=== PATIENT | female | born 1975 | race Two or more races ===

== ENCOUNTER 2016-04-30 18:50 | Emergency (ER) | payer MEDICAID ==
[~2016-04-30] VITALS: Ht 154.9 cm; Wt 117.9 kg
[~2016-04-30 18:50] MED LIST: AMOXICILLIN500 MG ORAL; BIAXIN500 M1 PO; CIPRO500 MG PO; CYCLOBENZAPRINE10 MG ORAL; IBUPROFEN600 MG ORAL; IBUPROFEN800 MG ORAL; KEFLEX500 MG ORAL; MACROBID100 MG ORAL; MOBIC15 MG ORAL; NKM; NORCO 5-325 TA1 EACH ORAL; ONDANSETRON ODT4 MG ORAL; PREDNISONE20 MG ORAL; ZOFRAN ODT4 MG ORAL
[2016-04-30] MEDS ORDERED: Acetaminophen 500mg (ES) tab ORAL ONE (19:30)
[2016-04-30 19:55] VITALS: BP 135/78
[2016-04-30 20:04] LABS: APPEARANCE,URINE CLEAR; KETONES,URINE NEGATIVE (NEGATIVE); LEUKOCYTE ESTERASE ,URINE 1+ (NEGATIVE); NITRITE,URINE POSITIVE (NEGATIVE); PH,URINE 6 (4.5-8.0); PROTEIN,URINE 1+ (NEGATIVE); UROBILINOGEN,URINE NORMAL MG/DL (0.0-1.0)
[2016-04-30 20:05] LABS: EOSINOPHILS % (AUTO) 0.6 % (0.0-3.0); LYMPHOCYTES % (AUTO) 24.7 % (20.0-45.0); MEAN CORPUSCULAR HEMOGLOBIN 32.5 PG (27.0-31.0); MEAN CORPUSCULAR HGB CONC 33.2 G/DL (32.0-36.0); MEAN CORPUSCULAR VOLUME 98 FL (80-99); MEAN PLATELET VOLUME 7.4 FL (6.5-10.1); MONOCYTES % (AUTO) 5.6 % (1.0-10.0); NEUTROPHILS % (AUTO) 68.1 % (45.0-75.0); PLATELET COUNT 297 K/UL (150-450); RED CELL DISTRIBUTION WIDTH 12.5 % (11.6-14.8); WHITE BLOOD COUNT 13.5 K/UL (4.8-10.8)
[2016-04-30 20:13] LABS: ALANINE AMINOTRANSFERASE 43 U/L (3-33); ALBUMIN/GLOBULIN RATIO 1.1 (1.0-2.7); ANION GAP 18 (5-15); ASPARTATE AMINO TRANSFERASE 30 U/L (5-40); CALCIUM 9.4 mg/dL (8.6-10.2); CARBON DIOXIDE 24 mEQ/L (20-30); CHLORIDE 97 mEQ/L (98-107); CREATININE 0.8 mg/dL (0.5-0.9); GLOMERULAR FILTRATION RATE > 60 mL/min (>60); HEMOLYSIS 8; SODIUM 139 mEQ/L (135-145); TOTAL PROTEIN 7.7 g/dL (6.6-8.7); TROPONIN I < 0.30 ng/mL (<=0.30)
[2016-04-30 20:14] LABS: BACTERIA,URINE MANY /HPF; SQUAMOUS EPITHELIAL CELL,UR FEW /LPF (NONE/OCC)
[2016-04-30 20:15] LABS: REFLEX LACTIC ACID YES OR NO YES
[2016-04-30 20:15] LABS: AMORPHOUS SEDIMENT,UR FEW /LPF
[2016-04-30 20:30] VITALS: BP 108/58
[2016-04-30 20:48] LABS: CKMB 3.3 ng/mL (< 3.8)
[2016-04-30] MEDS ORDERED: Morphine Sulfate 4mg/ml Inj IVP ONE (21:15)
[2016-04-30] MEDS ORDERED: IBUPROFEN600 MG ORAL (21:19)
[2016-04-30] MEDS ORDERED: LEVAQUIN750 MG ORAL (21:19)
[2016-04-30 21:25] VITALS: BP 108/58
--- NOTE | 2016-04-30 21:59 | Emergency Room Report ---
History of Present Illness General Chief Complaint: Dyspnea/Respdistress Source: Patient Present Illness HPI 40-year-old female presents to ED for evaluation. States that for the last 3 days she's been having productive cough, chills, bodyaches, noticing blood clots in her nose that she is coughing up. States the last time she had similar presentation she had a sinus infection. Patient notes chills, denies fevers. Generalized bodyaches, 8/10, dull, nonradiating. No aggravating or relieving factors. Denies chest pain. The shortness of breath. Denies sick contacts or recent travel. Denies any other associated symptoms Allergies: Coded Allergies: No Known Allergies (Unverified , 01/16/15) Patient History Past Medical History: asthma, CVA/TIA, seizures Past Surgical History: none Pertinent Family History: none Social History: Denies: alcohol use, drug use, smoking Now: No Immunizations: UTD Reviewed Nursing Documentation: PMH: Agreed, PSxH: Agreed Nursing Documentation-PMH Hx Cardiac Problems: Yes - TIA Hx Hypertension: Yes Hx Pacemaker: No Hx Asthma: Yes Hx COPD: No Hx Cancer: Yes - Ovarian cysts, hysterectomy 2013 Hx Dialysis: No Hx Cerebrovascular Accident: Yes Hx Seizures: Yes Review of Systems All Other Systems: negative except mentioned in HPI Physical Exam Vital Signs Date Time Temp Pulse Resp B/P Pulse Ox O2 Delivery O2 Flow Rate FiO2 04/30/16 18:56 98.8 91 21 135/78 93 Room Air Sp02 EP Interpretation: reviewed, normal General Appearance: no apparent distress, alert, GCS 15, non-toxic, obese Head: normocephalic, atraumatic Eyes: bilateral eye PERRL, bilateral eye normal inspection ENT: hearing grossly normal, normal pharynx, no angioedema, normal voice, TMs + canals normal Neck: full range of motion, supple/symm/no masses Respiratory: chest non-tender, lungs clear, normal breath sounds, speaking full sentences Cardiovascular #1: regular rate, rhythm, no edema Cardiovascular #2: 2+ carotid (R), 2+ carotid (L), 2+ radial (R), 2+ radial (L) , 2+ dorsalis pedis (R), 2+ dorsalis pedis (L) Gastrointestinal: normal bowel sounds, non tender, soft, non-distended, no guarding, no rebound Rectal: deferred Genitourinary: normal inspection, no CVA tenderness Musculoskeletal: back normal, gait/station normal, normal range of motion, non- tender Neurologic: alert, oriented x3, responsive, motor strength/tone normal, sensory intact, speech normal Psychiatric: judgement/insight normal, memory normal, mood/affect normal, no suicidal/homicidal ideation Reflexes: 3+ bicep (R), 3+ bicep (L), 3+ tricep (R), 3+ tricep (L), 3+ knee (R) , 3+ knee (L) Skin: normal color, no rash, warm/dry, well hydrated Lymphatic: no adenopathy Medical Decision Making Diagnostic Impression: Primary Impression: UTI (urinary tract infection) Qualified Codes: N39.0 - Urinary tract infection, site not specified Additional Impressions: Myalgia Sinusitis Qualified Codes: J32.9 - Chronic sinusitis, unspecified ER Course Hospital Course 40-year-old female presents to ED complaining of bodyaches, cough, chills, blood tinged sputum Differential diagnoses include: URI, bronchitis, asthma/COPD, pneumonia Clinical course Patient placed on stretcher. After initial history, physical exam reveals an obese female in no acute distress. Bilateral TM unremarkable. No pharyngeal erythema. No tonsillar exudates. No lymphadenopathy. lungs clear. I ordered labs, IV fluids, tylenol, chest x-ray. Labs reviewed-leukocytosis noted, hemoglobin/hematocrit stable, electrolytes okay, UA grossly positive Chest x-ray shows no lobar infiltrate reassurance given to patient. We will treat the UTI and sinus infection with one antibiotic Diagnosis - UTI, myalgia, sinusitis Stable and discharged home with prescriptions for Motrin, Levaquin. Instructed to followup with PMD. Return to ED if symptoms recur or worsen Labs Test 04/30/16 19:40 04/30/16 19:45 04/30/16 20:25 Urine Color Yellow Urine Appearance Clear Urine pH 6 (4.5-8.0) Urine Specific [place] 1.020 (1.005-1.035) Urine Protein 1+ (NEGATIVE) Urine Glucose (UA) Negative (NEGATIVE) Urine Ketones Negative (NEGATIVE) Urine Occult Blood 3+ (NEGATIVE) Urine Nitrite Positive (NEGATIVE) Urine Bilirubin Negative (NEGATIVE) Urine Urobilinogen Normal MG/DL (0.0-1.0) Urine Leukocyte Esterase 1+ (NEGATIVE) Urine RBC 10-15 /HPF (0 - 2) Urine WBC 5-10 /HPF (0 - 2) Urine Squamous Epithelial Cells Few /LPF (NONE/OCC) Urine Amorphous Sediment Few /LPF (NONE) Urine Bacteria Many /HPF (NONE) White Blood Count 13.5 K/UL (4.8-10.8) Red Blood Count 4.90 M/UL (4.20-5.40) Hemoglobin 15.9 G/DL (12.0-16.0) Hematocrit 48.0 % (37.0-47.0) Mean Corpuscular Volume 98 FL (80-99) Mean Corpuscular Hemoglobin 32.5 PG (27.0-31.0) Mean Corpuscular Hemoglobin Concent 33.2 G/DL (32.0-36.0) Red Cell Distribution Width 12.5 % (11.6-14.8) Platelet Count 297 K/UL (150-450) Mean Platelet Volume 7.4 FL (6.5-10.1) Neutrophils (%) (Auto) 68.1 % (45.0-75.0) Lymphocytes (%) (Auto) 24.7 % (20.0-45.0) Monocytes (%) (Auto) 5.6 % (1.0-10.0) Eosinophils (%) (Auto) 0.6 % (0.0-3.0) Basophils (%) (Auto) 1.0 % (0.0-2.0) Sodium Level 139 mEQ/L (135-145) Potassium Level 4.0 mEQ/L (3.4-4.9) Chloride Level 97 mEQ/L (98-107) Carbon Dioxide Level 24 mEQ/L (20-30) Anion Gap 18 (5-15) Blood Urea Nitrogen 12 mg/dL (7-23) Creatinine 0.8 mg/dL (0.5-0.9) Estimat Glomerular Filtration Rate > 60 mL/min (>60) Glucose Level 127 mg/dL (74-106) Lactic Acid Level 2.20 mmol/L (0.66-2.22) 1.80 mmol/L (0.66-2.22) Calcium Level 9.4 mg/dL (8.6-10.2) Total Bilirubin 0.2 mg/dL (0.0-1.2) Aspartate Amino Transf (AST/SGOT) 30 U/L (5-40) Alanine Aminotransferase (ALT/SGPT) 43 U/L (3-33) Alkaline Phosphatase 78 U/L (35-104) Total Creatine Kinase 161 U/L (26-140) Creatine Kinase MB 3.3 ng/mL (< 3.8) Creatine Kinase MB Relative Index 2.0 Troponin I < 0.30 ng/mL (<=0.30) Pro-B-Type Natriuretic Peptide 5 pg/mL (0-125) Total Protein 7.7 g/dL (6.6-8.7) Albumin 4.1 g/dL (3.5-5.2) Globulin 3.6 g/dL Albumin/Globulin Ratio 1.1 (1.0-2.7) EKG Diagnostic Results Rate: normal Rhythm: NSR ST Segments: no acute changes ASA given to the pt in ED: No Rhythm Strip Diag. Results EP Interpretation: yes Rhythm: NSR, no PVC's, no ectopy Chest X-Ray Diagnostic Results EP Interpretation: Yes Findings: no consolidation, no effusion, no pneumothorax, no acute cardiopulmonary disease Number of Views: 1 Last Vital Signs Date Time Temp Pulse Resp B/P Pulse Ox O2 Delivery O2 Flow Rate FiO2 04/30/16 21:25 98.8 99 28 108/58 96 Room Air Status: improved Disposition: HOME, SELF-CARE Condition: Stable Scripts Ibuprofen* (MOTRIN*) 600 Mg Tablet 600 MG ORAL Q8H Y for For Pain, #30 TAB 0 Refills Prov: ALICE COTTRELL M.D. 04/30/16 Levofloxacin* (LEVAQUIN*) 750 Mg Tablet 750 MG ORAL DAILY for 5 Days, TAB Prov: ALICE COTTRELL M.D. 04/30/16 Patient Instructions: Urinary Tract Infection, [id number] ALICE COTTRELL M.D. Apr 30, 2016 21:58
--- NOTE | 2016-05-01 11:13 | Diagnostic Imaging Report ---
Indication: Dyspnea Comparison: 01/16/16 A single view chest radiograph was obtained. Findings: Evaluation limited by breathing motion. Heart size is normal. Lungs are low in volume but essentially clear. Impression: No acute disease
--- NOTE | 2016-05-03 19:51 | Cardiology Report ---
APPROVED REPORT EKG Measurement Heart [id number] Sinus tachycardia Cannot rule out Anterior infarct, age undetermined Abnormal ECG
== END 2016-04-30 21:26 | disposition home or self-care (01) ==
LOC: EMR 19:55
DX: N39.0 Urinary tract infection, site not specified (principal); M79.1 Myalgia; J32.9 Chronic sinusitis, unspecified; I10 Essential (primary) hypertension; J45.909 Unspecified asthma, uncomplicated; Z86.73 Personal history of transient ischemic attack (TIA), and cerebral infarction without residual deficits; Z90.710 Acquired absence of both cervix and uterus
CPT/HCPCS: 36415; 71010; 80053; 81003; 82550; 82553; 83605; 83880; 84484; 85025; 87040; 87086; 87181; 93005; 96374; 99284; J2270

== ENCOUNTER 2016-06-01 10:32 | Emergency (ER) | payer MEDICAID ==
[~2016-06-01] VITALS: Ht 154.9 cm; Wt 117.9 kg
[~2016-06-01 10:32] MED LIST changes: +LEVAQUIN750 MG ORAL
--- NOTE | 2016-06-01 11:29 | Emergency Room Report ---
History of Present Illness General Chief Complaint: Dyspnea/Respdistress Source: Patient Present Illness HPI Patient is a 40-year-old female who presented after increased difficulty breathing. Patient had reported increased difficulty breathing associated with some leg swelling for the past few month. The patient had previously been seen and evaluated for similar type symptoms. Patient had been diagnosed with sinusitis at that time. Patient had negative chest x-ray. Patient reported having increased dyspnea associated with some upper extremity pain. The patient had any fever. She denied Contraceptive use. Allergies: Coded Allergies: No Known Allergies (Unverified , 01/16/15) Patient History Past Medical History: see triage record Last Menstrual Period: hyst Now: No Reviewed Nursing Documentation: PMH: Agreed, PSxH: Agreed Nursing Documentation-PMH Past Medical History: No History, Except For Hx Cardiac Problems: Yes Hx Hypertension: Yes Hx Pacemaker: No Hx Asthma: Yes Hx COPD: No Hx Cancer: Yes - Ovarian cysts, hysterectomy Hx Dialysis: No Hx Cerebrovascular Accident: Yes - TIA Hx Seizures: Yes Review of Systems All Other Systems: negative except mentioned in HPI Physical Exam Vital Signs Date Time Temp Pulse Resp B/P Pulse Ox O2 Delivery O2 Flow Rate FiO2 06/01/16 10:39 98.8 92 24 124/81 96 Room Air Sp02 EP Interpretation: reviewed, normal General Appearance: normal inspection, well appearing, no apparent distress, alert, GCS 15, non-toxic, obese Head: atraumatic ENT: hearing grossly normal, normal voice, other - prominent tongue, no erythema or exudate Neck: normal inspection, full range of motion, supple, no bony tend Respiratory: normal inspection, lungs clear, normal breath sounds, no respiratory distress, no retraction, no wheezing Cardiovascular #1: regular rate, rhythm, no edema Gastrointestinal: normal inspection, normal bowel sounds, non tender, soft, no guarding, no hernia Genitourinary: no CVA tenderness Musculoskeletal: normal inspection, back normal, normal range of motion Neurologic: normal inspection, alert, oriented x3, responsive, laboratory apparatus glass grinder III-XII nml as tested, speech normal Psychiatric: normal inspection, judgement/insight normal, mood/affect normal Skin: normal inspection, normal color, no rash Medical Decision Making Diagnostic Impression: Primary Impression: Pedal edema Additional Impression: Obesity ER Course Patient presented for shortness of breath.Differential included but was not limited to anemia, pneumonia, pneumothorax, myocardial infarction, pericardial effusion, congestive heart failure, acidosis. Because of complexity of patient' s case laboratory testing and imaging studies were ordered.CT of the chest read by radiology showed normal cardiac size without evident effusion or pulmonary embolism. The laboratory tests were unremarkable. The patient's shortness of breath may be related to her body habitus. The patient was advised to continue weight loss and that she may need further evaluation for sleep apnea.The patient is advised to follow up with primary care doctor in 1-2 days. Patient is advised to return if any worsening condition or if any changes in status that are concerning. Labs Test 06/01/16 11:30 06/01/16 11:40 Urine Color Yellow Urine Appearance Clear Urine pH 7 (4.5-8.0) Urine Specific [place] 1.010 (1.005-1.035) Urine Protein Negative (NEGATIVE) Urine Glucose (UA) Negative (NEGATIVE) Urine Ketones Negative (NEGATIVE) Urine Occult Blood 2+ (NEGATIVE) Urine Nitrite Negative (NEGATIVE) Urine Bilirubin Negative (NEGATIVE) Urine Urobilinogen Normal MG/DL (0.0-1.0) Urine Leukocyte Esterase 1+ (NEGATIVE) Urine RBC 2-4 /HPF (0 - 2) Urine WBC 2-4 /HPF (0 - 2) Urine Squamous Epithelial Cells Few /LPF (NONE/OCC) Urine Bacteria Few /HPF (NONE) Urine HCG, Qualitative Negative White Blood Count 9.1 K/UL (4.8-10.8) Red Blood Count 4.71 M/UL (4.20-5.40) Hemoglobin 15.0 G/DL (12.0-16.0) Hematocrit 45.7 % (37.0-47.0) Mean Corpuscular Volume 97 FL (80-99) Mean Corpuscular Hemoglobin 31.8 PG (27.0-31.0) Mean Corpuscular Hemoglobin Concent 32.8 G/DL (32.0-36.0) Red Cell Distribution Width 12.2 % (11.6-14.8) Platelet Count 287 K/UL (150-450) Mean Platelet Volume 8.4 FL (6.5-10.1) Neutrophils (%) (Auto) 62.5 % (45.0-75.0) Lymphocytes (%) (Auto) 28.5 % (20.0-45.0) Monocytes (%) (Auto) 7.1 % (1.0-10.0) Eosinophils (%) (Auto) 0.8 % (0.0-3.0) Basophils (%) (Auto) 1.2 % (0.0-2.0) Prothrombin Time 10.9 SEC (9.30-11.50) Prothromb Time International Ratio 1.1 (0.9-1.1) Activated Partial Thromboplast Time 27 SEC (23-33) D-Dimer 414 ng/mL (<500) Sodium Level 139 mEQ/L (135-145) Potassium Level 3.9 mEQ/L (3.4-4.9) Chloride Level 100 mEQ/L (98-107) Carbon Dioxide Level 25 mEQ/L (20-30) Anion Gap 14 (5-15) Blood Urea Nitrogen 9 mg/dL (7-23) Creatinine 0.7 mg/dL (0.5-0.9) Estimat Glomerular Filtration Rate > 60 mL/min (>60) Glucose Level 90 mg/dL (74-106) Calcium Level 9.5 mg/dL (8.6-10.2) Total Bilirubin 0.4 mg/dL (0.0-1.2) Aspartate Amino Transf (AST/SGOT) 20 U/L (5-40) Alanine Aminotransferase (ALT/SGPT) 24 U/L (3-33) Alkaline Phosphatase 64 U/L (35-104) Total Protein 7.4 g/dL (6.6-8.7) Albumin 4.0 g/dL (3.5-5.2) Globulin 3.4 g/dL Albumin/Globulin Ratio 1.1 (1.0-2.7) EKG Diagnostic Results Rate: normal Rhythm: NSR ST Segments: no acute changes Last Vital Signs Date Time Temp Pulse Resp B/P Pulse Ox O2 Delivery O2 Flow Rate FiO2 06/01/16 11:10 92 24 Room Air 06/01/16 10:39 98.8 124/81 96 Status: improved Romario Quezada Jun 01, 2016 11:29
[2016-06-01 11:46] LABS: APPEARANCE,URINE CLEAR; KETONES,URINE NEGATIVE (NEGATIVE); LEUKOCYTE ESTERASE ,URINE 1+ (NEGATIVE); NITRITE,URINE NEGATIVE (NEGATIVE); PH,URINE 7 (4.5-8.0); PROTEIN,URINE NEGATIVE (NEGATIVE); UROBILINOGEN,URINE NORMAL MG/DL (0.0-1.0)
[2016-06-01 11:57] LABS: BACTERIA,URINE FEW /HPF; SQUAMOUS EPITHELIAL CELL,UR FEW /LPF (NONE/OCC)
[2016-06-01 12:20] LABS: BASOPHILS % (AUTO) 1.2 % (0.0-2.0); EOSINOPHILS % (AUTO) 0.8 % (0.0-3.0); LYMPHOCYTES % (AUTO) 28.5 % (20.0-45.0); MEAN CORPUSCULAR HEMOGLOBIN 31.8 PG (27.0-31.0); MEAN CORPUSCULAR HGB CONC 32.8 G/DL (32.0-36.0); MEAN CORPUSCULAR VOLUME 97 FL (80-99); MEAN PLATELET VOLUME 8.4 FL (6.5-10.1); MONOCYTES % (AUTO) 7.1 % (1.0-10.0); NEUTROPHILS % (AUTO) 62.5 % (45.0-75.0); PLATELET COUNT 287 K/UL (150-450); RED BLOOD COUNT 4.71 M/UL (4.20-5.40); RED CELL DISTRIBUTION WIDTH 12.2 % (11.6-14.8); WHITE BLOOD COUNT 9.1 K/UL (4.8-10.8)
[2016-06-01 12:21] VITALS: BP 116/79
[2016-06-01 12:31] LABS: INR 1.1 (0.9-1.1); PROTHROMBIN TIME 10.9 SEC (9.30-11.50)
[2016-06-01 12:38] LABS: ALANINE AMINOTRANSFERASE 24 U/L (3-33); ALBUMIN/GLOBULIN RATIO 1.1 (1.0-2.7); ANION GAP 14 (5-15); ASPARTATE AMINO TRANSFERASE 20 U/L (5-40); CALCIUM 9.5 mg/dL (8.6-10.2); CARBON DIOXIDE 25 mEQ/L (20-30); CHLORIDE 100 mEQ/L (98-107); CREATININE 0.7 mg/dL (0.5-0.9); GLOMERULAR FILTRATION RATE > 60 mL/min (>60); HEMOLYSIS 8; POTASSIUM 3.9 mEQ/L (3.4-4.9); SODIUM 139 mEQ/L (135-145); TOTAL PROTEIN 7.4 g/dL (6.6-8.7)
[2016-06-01 14:30] VITALS: BP 122/82
--- NOTE | 2016-06-01 15:13 | Diagnostic Imaging Report ---
ndication: Chest pain, left-sided Technique: IV administration nonionic contrast. Spiral acquisitions obtained from the lung bases to the lung apices. Multiplanar and 3-D reconstructions were generated. Total dose length product 1228+1003 3 mGycm. CTDIvol(s) 12, 37, 49, 12, 25, 46 mGy. Note that the scanner failed during the initial acquisition and contrast injection, necessitating a repeat contrast injection and scanning Comparison: None Findings: , Pulmonary arterial contrast opacification is adequate although not optimal. No definite intraluminal filling defects or other findings to suggest acute pulmonary embolus are evident. No evidence of thoracic aortic aneurysm or dissection. Normal caliber pulmonary arteries. Normal heart size. No pericardial effusion. No mediastinal or hilar mass or adenopathy demonstrated. No axillary or chest wall mass or adenopathy. Esophagus is unremarkable. The included thyroid is unremarkable. The lungs demonstrate minimal posterior dependent groundglass opacities, presumably on the basis of atelectatic change, are otherwise clear. Pleural spaces are clear. The included upper abdominal anatomy is unremarkable. Impression: No evidence of acute pulmonary embolus or other acute or significant thoracic pathology. The CT scanner at [facility] is accredited by the [employer] and the scans are performed using protocols designed to limit radiation exposure to as low as reasonably achievable to attain images of sufficient resolution adequate for diagnostic evaluation.
[2016-06-01 15:31] VITALS: BP 115/54
--- NOTE | 2016-06-02 14:35 | Cardiology Report ---
APPROVED REPORT EKG Measurement Heart [id number] Normal sinus rhythm Low voltage QRS Cannot rule out Anterior infarct, age undetermined Abnormal ECG
== END 2016-06-01 15:32 | disposition home or self-care (01) ==
LOC: EMR 11:45
DX: R60.9 Edema, unspecified (principal); E66.9 Obesity, unspecified; I10 Essential (primary) hypertension; Z90.710 Acquired absence of both cervix and uterus; Z86.73 Personal history of transient ischemic attack (TIA), and cerebral infarction without residual deficits
CPT/HCPCS: 36415; 71275; 80053; 81001; 81025; 85025; 85379; 85610; 85730; 93005; 96374; 99284; J1940

== ENCOUNTER 2016-10-02 07:56 | Inpatient (IN) | payer MEDICAID ==
[~2016-10-02] VITALS: Ht 154.9 cm; Wt 107.0 kg
[2016-10-02] MEDS ORDERED: Ipratropium 0.02% Inh Soln 2.5ml UD ONE (08:13)
[2016-10-02] MEDS ORDERED: Albuterol ud Inhalation ONE (08:13)
[2016-10-02 08:37] VITALS: BP 128/85
[2016-10-02] MEDS ORDERED: Ipratropium 0.02% Inh Soln 2.5ml UD HHN ONE (08:45)
[2016-10-02] MEDS ORDERED: Albuterol ud Inhalation HHN ONE ×2 (08:45→11:30)
[2016-10-02] MEDS ORDERED: PredniSONE 20mg tab ORAL ONE (09:30)
[2016-10-02 09:59] VITALS: BP 129/79
--- NOTE | 2016-10-02 10:01 | Diagnostic Imaging Report ---
Indications: Shortness of breath Technique: Portable AP chest Findings: Comparison: 04/30/2016 Patient body habitus results in decreased image quality, limiting evaluation. Cardiac silhouette remains normal in size. Pulmonary vasculature remains within normal limits. Lungs and pleura remain clear.. IMPRESSION: No evidence of acute cardiopulmonary disease, limited as described, unchanged
--- NOTE | 2016-10-02 10:58 | Emergency Room Report ---
History of Present Illness General Chief Complaint: Dyspnea/Respdistress Source: Patient, Medical Record Present Illness HPI This patient has a history of asthma. The patient states that over the past couple days she has had severe episodic cough. She states she's also felt short of breath. She has been using her inhalers without relief. She states that she has had some sputum production and subjective fevers and chills. She states that she was unable to sleep last night secondary to the symptoms. She denies chest pain. She denies abdominal pain. She denies nausea or vomiting. She has no other complaints. Allergies: Coded Allergies: No Known Allergies (Unverified , 01/16/15) Patient History Past Medical History: see triage record, HTN, asthma, CVA/TIA, seizures, other - Lupus Social History: Reports: smoking, Denies: alcohol use, drug use Last Menstrual Period: hysterectomy Now: No : 3 Para: 2 Reviewed Nursing Documentation: PMH: Agreed, PSxH: Agreed Nursing Documentation-PMH Past Medical History: No History, Except For Hx Cardiac Problems: Yes Hx Hypertension: Yes Hx Pacemaker: No Hx Asthma: Yes Hx COPD: No Hx Cancer: Yes - Ovarian cysts, hysterectomy Hx Dialysis: No Hx Cerebrovascular Accident: Yes - TIA Hx Seizures: Yes Review of Systems All Other Systems: negative except mentioned in HPI Physical Exam Vital Signs Date Time Temp Pulse Resp B/P Pulse Ox O2 Delivery O2 Flow Rate FiO2 10/02/16 07:56 95 18 Room Air 10/02/16 07:56 97.5 133/87 95 Sp02 EP Interpretation: reviewed, normal General Appearance: no apparent distress, alert, GCS 15, non-toxic Head: normocephalic, atraumatic Eyes: bilateral eye PERRL, bilateral eye normal inspection ENT: hearing grossly normal, normal pharynx, no angioedema, normal voice Neck: full range of motion, supple/symm/no masses Respiratory: chest non-tender, no respiratory distress, no retraction, no accessory muscle use, speaking full sentences, wheezing, expiration Cardiovascular #1: regular rate, rhythm, no edema Gastrointestinal: normal bowel sounds, non tender, soft, non-distended, no guarding, no rebound Rectal: deferred Musculoskeletal: back normal, gait/station normal, normal range of motion, non- tender Neurologic: alert, oriented x3, responsive, motor strength/tone normal, sensory intact, speech normal Psychiatric: judgement/insight normal, memory normal, mood/affect normal, no suicidal/homicidal ideation Skin: normal color, no rash, warm/dry, well hydrated Medical Decision Making Diagnostic Impression: Primary Impression: Asthma exacerbation ER Course This patient has a clinical presentation consistent with asthma exacerbation. Patient has a history of asthma and has wheezing on physical exam. The patient was given albuterol and Atrovent nebulizer treatments. The patient was also given prednisone orally. The patient continued to have wheezing and felt very short of breath. She did maintain her oxygen saturations and without respiratory distress. The patient is very nervous about going home and worsening. Given the patient continues to have wheezing and not turnaround with treatment in emergency department, I felt I should admit this patient for further pulmonary hygiene and further albuterol and Atrovent treatment and monitoring. Chest X-Ray Diagnostic Results Chest X-Ray Ordered: Yes # of Views/Limited/Complete: 1 View Interpretation: no consolidation, no effusion, no pneumothorax, no acute cardiopulmonary disease Indication: Chest Pain Impression: No acute disease Date Electronically Signed: Oct 02, 2016 Time Electronically Signed: 10:34 Interpreting ER Physician: Rian Last Vital Signs Date Time Temp Pulse Resp B/P Pulse Ox O2 Delivery O2 Flow Rate FiO2 10/02/16 09:59 105 26 Room Air 10/02/16 09:59 98.0 129/79 100 Disposition: ADMITTED INPATIENT Condition: Stable Referrals: NON PHYSICIAN (PCP) BRANDON WELLER D.O. Oct 02, 2016 10:58
[2016-10-02] MEDS ORDERED: BACLOFEN10 MG ORAL (11:50)
[2016-10-02] MEDS ORDERED: IBUPROFEN600 MG ORAL (11:50)
[2016-10-02] MEDS ORDERED: ARNUITY ELLIP100 MCG IH (11:50)
[2016-10-02] MEDS ORDERED: ALBUTEROL2.5 MG/3 M INH (11:50)
[2016-10-02 12:24] LABS: BASOPHILS % (AUTO) 0.8 % (0.0-2.0); LYMPHOCYTES % (AUTO) 35.8 % (20.0-45.0); MEAN CORPUSCULAR HEMOGLOBIN 31.9 PG (27.0-31.0); MEAN CORPUSCULAR HGB CONC 32.6 G/DL (32.0-36.0); MEAN CORPUSCULAR VOLUME 98 FL (80-99); MONOCYTES % (AUTO) 7.2 % (1.0-10.0); NEUTROPHILS % (AUTO) 52.3 % (45.0-75.0); PLATELET COUNT 254 K/UL (150-450); RED BLOOD COUNT 4.59 M/UL (4.20-5.40); RED CELL DISTRIBUTION WIDTH 12.1 % (11.6-14.8); WHITE BLOOD COUNT 11.7 K/UL (4.8-10.8)
[2016-10-02 12:33] LABS: ANION GAP 17 (5-15); CALCIUM 9.2 mg/dL (8.6-10.2); CARBON DIOXIDE 27 mEQ/L (20-30); CHLORIDE 95 mEQ/L (98-107); CREATININE 0.9 mg/dL (0.5-0.9); GLOMERULAR FILTRATION RATE > 60 mL/min (>60); HEMOLYSIS 4; POTASSIUM 3.9 mEQ/L (3.4-4.9); SODIUM 139 mEQ/L (135-145)
[2016-10-02 13:00] VITALS: BP 138/73
--- NOTE | 2016-10-02 13:34 | History & Physical ---
History and Physical History & Physicial HPI 41 year old patient with a history of asthma. The patient with increasing cough and short of breath. She has been using her inhalers without relief. She states that she has had some sputum production and tactile fevers and chills. she has noticed increased nocturnal symptoms Allergies: No Known Allergies (Unverified , 01/16/15) Past Medical History: HTN, asthma, CVA/TIA, seizures, other - Lupus Social History: Reports: smoking, no alcohol use, drug use Past surgical history: hysterectomy Reviewed of systems: otherwise negative Physical WDWN NAD reduced breath sounds bilaterally with wheeze [id number] without MRG NABS nontender no HSM no CCE nonfocal Laboratory Tests Test 10/02/16 08:08 White Blood Count 11.7 K/UL (4.8-10.8) H Red Blood Count 4.59 M/UL (4.20-5.40) Hemoglobin 14.6 G/DL (12.0-16.0) Hematocrit 44.9 % (37.0-47.0) Mean Corpuscular Volume 98 FL (80-99) Mean Corpuscular Hemoglobin 31.9 PG (27.0-31.0) H Mean Corpuscular Hemoglobin Concent 32.6 G/DL (32.0-36.0) Red Cell Distribution Width 12.1 % (11.6-14.8) Platelet Count 254 K/UL (150-450) Mean Platelet Volume 7.0 FL (6.5-10.1) Neutrophils (%) (Auto) 52.3 % (45.0-75.0) Lymphocytes (%) (Auto) 35.8 % (20.0-45.0) Monocytes (%) (Auto) 7.2 % (1.0-10.0) Eosinophils (%) (Auto) 4.0 % (0.0-3.0) H Basophils (%) (Auto) 0.8 % (0.0-2.0) Sodium Level 139 mEQ/L (135-145) Potassium Level 3.9 mEQ/L (3.4-4.9) Chloride Level 95 mEQ/L (98-107) L Carbon Dioxide Level 27 mEQ/L (20-30) Anion Gap 17 (5-15) H Blood Urea Nitrogen 7 mg/dL (7-23) Creatinine 0.9 mg/dL (0.5-0.9) Estimat Glomerular Filtration Rate > 60 mL/min (>60) Glucose Level 113 mg/dL (74-106) H Calcium Level 9.2 mg/dL (8.6-10.2) IMPRESSION Asthma with exacerbation shortness of breath respiratory infection lupus PLAN care noted IV antibiotics respiratory care IV steroids supportive care encourage oxygen therapy prognosis guarded ERASMO PRINGLE Oct 02, 2016 13:34
[2016-10-02 16:24] VITALS: BP 136/87
[2016-10-02] MEDS ORDERED: Zolpidem 5mg tab ORAL PRN (17:00)
[2016-10-02] MEDS: cefTRIAXone 1 GM in D5W 55 ML IVPB SCH (18:45)
[2016-10-02] MEDS: DuoNeb 0.5-3(2.5)mg/3ml neb HHN PRN (19:33)
[2016-10-02 20:00] VITALS: BP 108/55
[2016-10-02] MEDS: Heparin 5000 units/ml inj SUBQ SCH (20:55)
[2016-10-02] MEDS: Solu-MEDROL 40mg Inj IVP SCH (20:55)
[2016-10-03] VITALS: BP 131/66
[2016-10-03 04:00] VITALS: BP 135/71
[2016-10-03] MEDS: Solu-MEDROL 40mg Inj IVP SCH ×3 (05:32→21:17)
[2016-10-03 08:00] VITALS: BP 142/87
--- NOTE | 2016-10-03 08:37 | General Progress Note ---
Assessment/Plan Assessment/Plan IMPRESSION Asthma with exacerbation shortness of breath respiratory infection lupus PLAN care noted IV antibiotics respiratory care IV steroids supportive care encourage oxygen therapy dc planning Subjective Allergies: Coded Allergies: No Known Allergies (Unverified , 01/16/15) Subjective improved care noted Objective Last 24 Hour Vital Signs Date Time Temp Pulse Resp B/P Pulse Ox O2 Delivery O2 Flow Rate FiO2 10/03/16 08:00 97.9 100 18 142/87 98 Room Air 10/03/16 07:16 99 18 Room Air 10/03/16 04:00 97.7 102 20 135/71 96 Room Air 10/03/16 00:00 98.2 96 18 131/66 94 Room Air 10/02/16 20:00 98.6 115 18 108/55 92 Room Air 10/02/16 19:46 105 18 100 Room Air 21 10/02/16 19:37 21 10/02/16 19:37 110 20 98 Room Air 21 10/02/16 19:20 99 20 Room Air 10/02/16 16:24 99.5 117 20 136/87 95 Room Air 10/02/16 14:35 102 20 152/85 99 Room Air 10/02/16 13:00 98.1 97 19 138/73 97 Room Air 10/02/16 11:54 94 18 100 Room Air 21 10/02/16 11:37 102 20 100 Room Air 21 10/02/16 11:37 21 10/02/16 11:28 102 20 Room Air 10/02/16 09:59 105 26 Room Air 10/02/16 09:59 98.0 105 26 129/79 100 Room Air 10/02/16 09:00 99 21 98 Room Air 21 10/02/16 08:40 98 21 98 Room Air 21 10/02/16 08:40 98 21 Room Air 21 10/02/16 08:40 21 Intake and Output 10/02/16 10/03/16 19:00 07:00 Intake Total 1000 ml 55 ml Balance 1000 ml 55 ml Intake Oral 1000 ml IV Total 55 ml # Voids 2 Height (Feet): 5 Height (Inches): 1.00 Weight (Pounds): 236 Objective WDWN NAD reduced breath sounds bilaterally without rhonchi or wheeze [id number] without MRG NABS nontender no HSM no CCE nonfocal ERASMO PRINGLE Oct 03, 2016 08:37
[2016-10-03] MEDS: Heparin 5000 units/ml inj SUBQ SCH ×2 (09:39→21:24)
[2016-10-03] MEDS: Promethazine/Codeine 5ml UD ORAL PRN ×2 (09:58→22:05)
[2016-10-03] MEDS ORDERED: 1/2 NS 1000ml IV ONE (10:01)
[2016-10-03] MEDS ORDERED: Tubing IV Secondary IV ONE (10:01)
[2016-10-03] MEDS ORDERED: NS 275ml ONE (10:01)
[2016-10-03 12:00] VITALS: BP 129/69
[2016-10-03] MEDS: DuoNeb 0.5-3(2.5)mg/3ml neb HHN PRN ×3 (14:57→23:49)
[2016-10-03] MEDS ORDERED: LORazepam 1mg tab ORAL PRN (15:30)
[2016-10-03 15:58] VITALS: BP 130/79
[2016-10-03] MEDS: cefTRIAXone 1 GM in D5W 55 ML IVPB SCH (17:38)
[2016-10-03 20:00] VITALS: BP 140/88
[2016-10-04] VITALS: BP 129/72
[2016-10-04 04:30] VITALS: BP 115/70
[2016-10-04] MEDS: Solu-MEDROL 40mg Inj IVP SCH ×3 (06:00→21:16)
--- NOTE | 2016-10-04 07:23 | General Progress Note ---
Assessment/Plan Assessment/Plan IMPRESSION Asthma with exacerbation shortness of breath respiratory infection lupus PLAN care noted IV antibiotics respiratory care IV steroids supportive care encourage oxygen therapy dc planning once better still with bronchospasm and congestion Subjective Allergies: Coded Allergies: No Known Allergies (Unverified , 01/16/15) Subjective still congested Objective Last 24 Hour Vital Signs Date Time Temp Pulse Resp B/P Pulse Ox O2 Delivery O2 Flow Rate FiO2 10/04/16 04:30 97.5 81 19 115/70 95 Nasal Cannula 10.0 10/04/16 00:00 98.1 99 20 129/72 96 Nasal Cannula 10.0 10/03/16 23:52 82 18 100 Room Air 21 10/03/16 23:50 98 20 96 Nasal Cannula 32 10/03/16 23:49 85 18 Room Air 10/03/16 20:16 98 18 100 Room Air 21 10/03/16 20:09 95 18 Room Air 10/03/16 20:00 98.1 97 19 140/88 92 Nasal Cannula 10.0 10/03/16 15:58 98.1 80 18 130/79 93 Nasal Cannula 2.0 10/03/16 15:08 96 18 98 Room Air 21 10/03/16 14:58 21 10/03/16 14:58 98 20 96 Nasal Cannula 32 10/03/16 12:00 98.1 104 20 129/69 97 Nasal Cannula 2.0 10/03/16 08:00 97.9 100 18 142/87 98 Room Air Intake and Output 10/03/16 10/04/16 19:00 07:00 Intake Total 1015 ml 360 ml Balance 1015 ml 360 ml Intake Oral 960 ml 360 ml IV Total 55 ml # Voids 4 1 Height (Feet): 5 Height (Inches): 1.00 Weight (Pounds): 236 Objective WDWN NAD reduced breath sounds bilaterally without rhonchi or wheeze [id number] without MRG NABS nontender no HSM no CCE nonfocal ERASMO PRINGLE Oct 04, 2016 07:23
[2016-10-04] MEDS: DuoNeb 0.5-3(2.5)mg/3ml neb HHN PRN ×3 (07:54→19:39)
[2016-10-04 08:00] VITALS: BP 154/86
[2016-10-04] MEDS: Promethazine/Codeine 5ml UD ORAL PRN ×2 (08:25→14:23)
[2016-10-04] MEDS: Heparin 5000 units/ml inj SUBQ SCH ×2 (08:26→21:00)
[2016-10-04 12:00] VITALS: BP 153/86
[2016-10-04] MEDS ORDERED: Oxymetazoline 0.05% Na Spray 30ml NASAL PRN (13:30)
[2016-10-04] MEDS ORDERED: Levofloxacin 500mg tab ORAL SCH (14:00)
[2016-10-04 16:00] VITALS: BP 148/89
[2016-10-04] MEDS: cefTRIAXone 1 GM in D5W 55 ML IVPB SCH (17:43)
[2016-10-04 20:00] VITALS: BP 131/89
[2016-10-05 00:22] VITALS: BP 124/78
[2016-10-05] MEDS: DuoNeb 0.5-3(2.5)mg/3ml neb HHN PRN (00:26)
[2016-10-05 04:23] VITALS: BP 130/70
[2016-10-05] MEDS: Solu-MEDROL 40mg Inj IVP SCH (06:25)
[2016-10-05 08:15] VITALS: BP 138/93
[2016-10-05] MEDS: Heparin 5000 units/ml inj SUBQ SCH (09:20)
--- NOTE | 2016-10-05 10:30 | General Progress Note ---
Assessment/Plan Assessment/Plan IMPRESSION Asthma with exacerbation shortness of breath respiratory infection lupus PLAN care noted medrol dose yolande levaquin breo singulair proair prn dc today and follow up with PMD Subjective Allergies: Coded Allergies: No Known Allergies (Unverified , 01/16/15) Subjective much improved Objective Last 24 Hour Vital Signs Date Time Temp Pulse Resp B/P Pulse Ox O2 Delivery O2 Flow Rate FiO2 10/05/16 08:15 97.9 88 20 138/93 96 Room Air 10/05/16 08:05 98 20 Nasal Cannula 3.0 32 10/05/16 04:23 97.5 70 18 130/70 97 Room Air 10/05/16 00:31 97 16 98 Nasal Cannula 3.0 32 10/05/16 00:22 96.6 94 19 124/78 95 Nasal Cannula 2.0 10/05/16 00:20 91 16 96 Nasal Cannula 3.0 32 10/04/16 20:00 98.2 81 20 131/89 95 Nasal Cannula 3.0 10/04/16 19:51 103 18 98 Nasal Cannula 3.0 32 10/04/16 19:40 105 20 98 Nasal Cannula 3.0 32 10/04/16 19:40 105 20 Nasal Cannula 3.0 32 10/04/16 16:00 97.7 18 148/89 94 Nasal Cannula 3.0 10/04/16 12:20 84 18 100 Nasal Cannula 2.0 28 10/04/16 12:10 80 18 95 Nasal Cannula 2.0 28 10/04/16 12:00 96.4 18 153/86 93 Nasal Cannula 10.0 Intake and Output 10/04/16 10/05/16 19:00 07:00 Intake Total 655 ml 240 ml Balance 655 ml 240 ml Intake Oral 600 ml 240 ml IV Total 55 ml # Voids 1 2 # Bowel Movements 1 Height (Feet): 5 Height (Inches): 1.00 Weight (Pounds): 236 Objective WDWN NAD improved breath sounds bilaterally without rhonchi or wheeze [id number] without MRG NABS nontender no HSM no CCE nonfocal ERASMO PRINGLE Oct 05, 2016 10:30
[2016-10-05] MEDS ORDERED: LEVAQUIN500 MG ORAL (11:29)
[2016-10-05] MEDS ORDERED: SINGULAIR10 MG ORAL (11:31)
[2016-10-05] MEDS ORDERED: PROAIR HFA8.5 GM INH (11:32)
--- NOTE | 2016-10-05 12:07 | Diagnostic Imaging Report ---
Indications: Shortness of breath, asthma Technique: Portable AP chest Findings: Comparison: 10/02/16 Cardiac silhouette remains normal in size. Pulmonary vasculature remains within normal limits. Inspiratory effort remains suboptimal. Visualized portions of Lungs and pleura remain clear. IMPRESSION: No evidence of acute disease, unchanged
[2016-10-05 12:22] VITALS: BP 148/79
--- NOTE | 2016-10-06 12:01 | Discharge Summary ---
Discharge Summary Hospital Course Date of Admission Oct 02, 2016 at 12:00 Date of Discharge Oct 05, 2016 at 11:30 Admitting Diagnosis Asthma exacerbation HPI Marsha Decker is a 41 year old female who was admitted on Oct 02, 2016 at 12:00 for Asthma Exacerbation Hospital Course dc summary #[id number] Discharge Medications Continued Medications: Albuterol Sulfate* (Albuterol Sulfate Hhn*) 2.5 Mg/3 Ml Vial.neb 3 ML INH Q6H PRN for Shortness of Breath, #30 EA 0 Refills Albuterol Sulfate* (Proair Hfa*) 8.5 Gm Hfa.aer.ad 2 PUFFS INH Q4H, #8.5 GM 0 Refills Baclofen* (Baclofen*) 10 Mg Tablet 10 MG ORAL THREE TIMES A DAY PRN for For Pain, TAB Fluticasone Furoate (Arnuity Ellipta) 100 Mcg Blst.w.dev 100 MCG IH DAILY Ibuprofen* (Motrin*) 600 Mg Tablet 800 MG ORAL Q8H PRN for For Pain, #30 TAB 0 Refills Levofloxacin* (Levaquin*) 500 Mg Tablet 500 MG ORAL DAILY for 5 Days, TAB Montelukast Sodium* (Singulair*) 10 Mg Tablet 10 MG ORAL DAILY for 30 Days, TAB No Known Medications* (NKM - No Known Medications*) . 0 ., 0 Refills Discharge Condition Upon Discharge: stable Discharge Disposition Patient was discharged to Home (01) Discharge Diagnoses: Discharge Instructions Discharge Instructions Special Instructions I have been assigned to complete a D/C Summary on this account. I was not involved in the patient management Janine Talavera NP ([facility]) Oct 06, 2016 12:01
--- NOTE | 2016-10-07 01:30 | Discharge Summary 2 SIG ---
DATE OF ADMISSION: 10/02/2016 DATE OF DISCHARGE: 10/05/2016 REASON FOR ADMISSION: The patient is a 41-year-old female with multiple chronic comorbidities including asthma, hypertension, transient ischemic attack, systemic lupus erythematosus, and seizure disorder, presented to the emergency room with complaint of cough for the past couple of days and shortness of breath. The patient reported that she used her inhaler without any significant relief. The patient reported subjective fevers and chills. The patient reported some sputum production. No hemoptysis, but intermittent wheezing. She denied chest pain or palpitation. She denied abdominal pain. No nausea. No vomiting. Workup in the emergency room revealed no fever. Pulse oximetry was stable at 95% on room air. Chest x-ray revealed no acute cardiopulmonary disease. Mild leukocytosis of 11.7. Electrolytes were overall stable. The patient was admitted for further management. ADMITTING DIAGNOSES: Include, 1. Asthma exacerbation. 2. Shortness of breath. 3. Respiratory infection, likely purulent bronchitis. 4. Systemic lupus erythematosus. HOSPITAL STAY: The patient was admitted. The patient was started on empiric antibiotics. Sputum culture was negative. Supplemental oxygen and pulmonary toilet were provided as needed. Antitussive was provided as needed. The patient was started on the IV steroids, which were gradually tapered. Her clinical condition improved. DVT and GI prophylaxis were provided. Initial chest x-ray revealed no acute cardiopulmonary disease as mentioned above. Follow up chest x-ray also revealed no acute cardiopulmonary disease. The patient clinically improved. Reported feeling better. No fever. Pulse oximetry was stable on the room air. The patient was stable for discharge. DISCHARGE DIAGNOSES: Include, 1. Asthma exacerbation. 2. Shortness of breath. 3. Respiratory infection, likely purulent bronchitis. 4. Systemic lupus erythematosus. DISCHARGE MEDICATIONS: See medication reconciliation list. DISCHARGE INSTRUCTIONS: The patient was discharged home. Follow up with the primary medical doctor. Estuardo Cruz M.D. I have been assigned to dictate discharge summary on this account and I was not involved in the patient's management. Janine Talavera N.P. (vanchtein) DR: YULY JOB#: [id number] CC:
== END 2016-10-05 11:30 | disposition home or self-care (01) | DRG 141 ==
LOC: EMR 08:15 → 4E 12:00 → EDBEDREQ 13:11 → 3E 10-04 22:33
DX: J45.901 Unspecified asthma with (acute) exacerbation (principal); M32.9 Systemic lupus erythematosus, unspecified; R56.9 Unspecified convulsions; I10 Essential (primary) hypertension; Z86.73 Personal history of transient ischemic attack (TIA), and cerebral infarction without residual deficits; J41.1 Mucopurulent chronic bronchitis
CPT/HCPCS: 36415; 71010; 80048; 85025; 87070; 87205; 94640; 94664; J7620

== ENCOUNTER 2016-10-26 10:24 | Emergency (ER) | payer MEDICAID ==
[~2016-10-26] VITALS: Ht 165.1 cm; Wt 83.9 kg
[~2016-10-26 10:24] MED LIST changes: +ALBUTEROL2.5 MG/3 M INH; +ARNUITY ELLIP100 MCG IH; +BACLOFEN10 MG ORAL; +LEVAQUIN500 MG ORAL; +PROAIR HFA8.5 GM INH; +SINGULAIR10 MG ORAL
[2016-10-26] MEDS ORDERED: LORATADINE10 M1 PO (10:28)
[2016-10-26] MEDS ORDERED: NAPROXEN250 M1 PO (10:28)
[2016-10-26 10:30] VITALS: BP 151/88
--- NOTE | 2016-10-26 10:37 | Emergency Room Report ---
History of Present Illness General Chief Complaint: General Complaint Source: Patient Present Illness HPI Patient presents with pedal edema and calf pain. It has worsened over the last week. She saw recently and he prescribed medication for that she's not taking. Apparently she only takes ibuprofen home. She has a history of lupus. Not taking steroids. She's been dyspneic with exertion. She hears herself wheezing. She has a history of asthma. She hasn't had any fevers or productive cough. Pressure in the chest but not pain per se. Her doctor recently suggested she might have gout. She is not taking water pills. She denies heart or renal problems. Recently hospitalized for 4 days for asthma. Had CTA chest in May for edema which was negative. Allergies: Coded Allergies: No Known Allergies (Unverified , 01/16/15) Patient History Past Medical History: see triage record Social History: Denies: smoking Social History Narrative missed section 8 hearings due to hosp and again today Now: No Reviewed Nursing Documentation: PMH: Agreed, PSxH: Agreed Nursing Documentation-PMH Past Medical History: No Stated History Hx Cardiac Problems: No Hx Hypertension: No Hx Pacemaker: No Hx Asthma: No Hx COPD: No Hx Diabetes: No Hx Cancer: No Hx Gastrointestinal Problems: Yes - lupus Hx Dialysis: No History Of Psychiatric Problem: No Hx Neurological Problems: No Hx Cerebrovascular Accident: No Hx Transient Ischemic Attacks: Yes Hx Seizures: No 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 Review of Systems All Other Systems: negative except mentioned in HPI Physical Exam Vital Signs Date Time Temp Pulse Resp B/P Pulse Ox O2 Delivery O2 Flow Rate FiO2 10/26/16 10:16 98.4 71 16 126/82 98 Room Air Sp02 EP Interpretation: reviewed, normal General Appearance: well appearing, no apparent distress, GCS 15 Head: normocephalic Eyes: bilateral eye PERRL, bilateral eye normal inspection ENT: moist mucus membranes Neck: supple Respiratory: lungs clear, normal breath sounds - though she states she has heard herself wheezing Cardiovascular #1: regular rate, rhythm, edema - trace Cardiovascular #2: 2+ radial (R) Gastrointestinal: normal inspection, normal bowel sounds, non tender, no mass, non-distended Musculoskeletal: back normal, digits/nails normal, gait/station normal, normal range of motion, no calf tenderness, Kash's Sign negative Neurologic: alert, oriented x3, grossly normal Psychiatric: mood/affect normal Skin: normal inspection, warm/dry, other - no erythema Medical Decision Making Diagnostic Impression: Primary Impression: Edema Qualified Codes: R60.9 - Edema, unspecified Additional Impressions: Lupus (systemic lupus erythematosus) Qualified Codes: M32.9 - Systemic lupus erythematosus, unspecified History of asthma requiring an overnight hospital stay within past 2 years ER Course Patient presents with dyspnea, pedal edema and calf pain. Differential is broad including congestive heart failure, peripheral edema, renal dysfunction including lupus nephritis, DVT and PE. We need to perform noninvasive vascular studies and also laboratory. The patient will be given some Lasix. Some a question whether checked out uric acid will be obtained. Negative CTA helps. Non-invasive vasc negative for DVT. Labs normal WBC, slightly elevated ESR. Normal renal function. Uric acid normal. CXR normal. Improved with treatment. Patient stable for outpatient observation and treatment. Laboratory Tests Test 10/26/16 10:40 10/26/16 11:40 White Blood Count 8.3 K/UL (4.8-10.8) Red Blood Count 4.38 M/UL (4.20-5.40) Hemoglobin 13.9 G/DL (12.0-16.0) Hematocrit 43.3 % (37.0-47.0) Mean Corpuscular Volume 99 FL (80-99) Mean Corpuscular Hemoglobin 31.8 PG (27.0-31.0) H Mean Corpuscular Hemoglobin Concent 32.2 G/DL (32.0-36.0) Red Cell Distribution Width 12.7 % (11.6-14.8) Platelet Count 266 K/UL (150-450) Mean Platelet Volume 7.7 FL (6.5-10.1) Neutrophils (%) (Auto) 67.6 % (45.0-75.0) Lymphocytes (%) (Auto) 25.4 % (20.0-45.0) Monocytes (%) (Auto) 5.3 % (1.0-10.0) Eosinophils (%) (Auto) 0.8 % (0.0-3.0) Basophils (%) (Auto) 0.8 % (0.0-2.0) Erythrocyte Sedimentation Rate 41 MM/HR (0-20) H Prothrombin Time 10.9 SEC (9.30-11.50) Prothrombin Time INR 1.0 (0.9-1.1) PTT 26 SEC (23-33) Sodium Level 142 mEQ/L (135-145) Potassium Level 3.6 mEQ/L (3.4-4.9) Chloride Level 104 mEQ/L (98-107) Carbon Dioxide Level 28 mEQ/L (20-30) Anion Gap 10 (5-15) Blood Urea Nitrogen 14 mg/dL (7-23) Creatinine 0.8 mg/dL (0.5-0.9) Estimate Glomerular Filtration Rate > 60 mL/min (>60) Glucose Level 119 mg/dL (74-106) H Uric Acid 6.9 mg/dL (3.0-7.5) Calcium Level 9.3 mg/dL (8.6-10.2) Total Bilirubin 0.4 mg/dL (0.0-1.2) Aspartate Amino Transferase (AST) 23 U/L (5-40) Alanine Aminotransferase (ALT) 39 U/L (3-33) H Alkaline Phosphatase 63 U/L (35-104) Total Creatine Kinase 172 U/L (26-140) H Troponin I < 0.30 ng/mL (<=0.30) Pro-B-Type Natriuretic Peptide 29 pg/mL (0-125) Total Protein 6.9 g/dL (6.6-8.7) Albumin 4.1 g/dL (3.5-5.2) Globulin 2.8 g/dL Albumin/Globulin Ratio 1.4 (1.0-2.7) Urine Color Pale yellow Urine Appearance Clear Urine pH 6.5 (4.5-8.0) Urine Specific [place] 1.005 (1.005-1.035) Urine Protein Negative (NEGATIVE) Urine Glucose (UA) Negative (NEGATIVE) Urine Ketones Negative (NEGATIVE) Urine Occult Blood Negative (NEGATIVE) Urine Nitrite Negative (NEGATIVE) Urine Bilirubin Negative (NEGATIVE) Urine Urobilinogen Normal MG/DL (0.0-1.0) Urine Leukocyte Esterase Negative (NEGATIVE) Urine HCG, Qualitative Negative Urine Opiates Screen Negative (NEGATIVE) Urine Barbiturates Screen Negative (NEGATIVE) Phencyclidine (PCP) Screen Negative (NEGATIVE) Urine Amphetamines Screen Negative (NEGATIVE) Urine Benzodiazepines Screen Negative (NEGATIVE) Urine Cocaine Screen Negative (NEGATIVE) Urine Marijuana (THC) Screen Negative (NEGATIVE) EKG Diagnostic Results Rate: normal Rhythm: NSR ST Segments: no acute changes Rhythm Strip Diag. Results EP Interpretation: yes Rhythm: NSR, no PVC's, no ectopy Chest X-Ray Diagnostic Results Chest X-Ray Diagnostic Results : Chest X-Ray Ordered: Yes # of Views/Limited/Complete: 1 View Indication: Chest Pain EP Interpretation: Yes Interpretation: no consolidation, no effusion, no pneumothorax, no acute cardiopulmonary disease Impression: No acute disease Interpreting ER Provider: Electronically signed by Jeremie Daniel MD Last Vital Signs Date Time Temp Pulse Resp B/P Pulse Ox O2 Delivery O2 Flow Rate FiO2 10/26/16 14:51 98 20 123/60 96 Room Air 10/26/16 10:16 98.4 Status: improved Disposition: HOME, SELF-CARE Condition: Improved Scripts Triamterene/Hydrochlorothiazide* (DYAZIDE 37.5-25 MG TAB*) 1 Each Tablet 1 TAB ORAL QOD, #10 TAB Prov: Jeremie Daniel M.D. 10/26/16 Jeremie Daniel M.D. Oct 26, 2016 10:37
[2016-10-26] MEDS ORDERED: Albuterol ud Inhalation HHN ONE (10:45)
[2016-10-26] MEDS ORDERED: Ipratropium 0.02% Inh Soln 2.5ml UD HHN ONE (10:45)
[2016-10-26 10:56] LABS: BASOPHILS % (AUTO) 0.8 % (0.0-2.0); EOSINOPHILS % (AUTO) 0.8 % (0.0-3.0); LYMPHOCYTES % (AUTO) 25.4 % (20.0-45.0); MEAN CORPUSCULAR HEMOGLOBIN 31.8 PG (27.0-31.0); MEAN CORPUSCULAR HGB CONC 32.2 G/DL (32.0-36.0); MEAN CORPUSCULAR VOLUME 99 FL (80-99); MEAN PLATELET VOLUME 7.7 FL (6.5-10.1); MONOCYTES % (AUTO) 5.3 % (1.0-10.0); NEUTROPHILS % (AUTO) 67.6 % (45.0-75.0); PLATELET COUNT 266 K/UL (150-450); RED BLOOD COUNT 4.38 M/UL (4.20-5.40); RED CELL DISTRIBUTION WIDTH 12.7 % (11.6-14.8); WHITE BLOOD COUNT 8.3 K/UL (4.8-10.8)
--- NOTE | 2016-10-26 11:04 | Diagnostic Imaging Report ---
Indication: DYSPNEA Technique: One view of the chest Comparison: 10/04/2016 Findings: Lungs and pleural spaces are clear. Heart size is normal. No significant change Impression: No acute process
[2016-10-26 11:09] LABS: PROTHROMBIN TIME 10.9 SEC (9.30-11.50)
[2016-10-26 11:10] LABS: TROPONIN I < 0.30 ng/mL (<=0.30)
[2016-10-26 11:13] LABS: ALANINE AMINOTRANSFERASE 39 U/L (3-33); ALBUMIN/GLOBULIN RATIO 1.4 (1.0-2.7); ANION GAP 10 (5-15); ASPARTATE AMINO TRANSFERASE 23 U/L (5-40); CALCIUM 9.3 mg/dL (8.6-10.2); CARBON DIOXIDE 28 mEQ/L (20-30); CHLORIDE 104 mEQ/L (98-107); CREATININE 0.8 mg/dL (0.5-0.9); GLOMERULAR FILTRATION RATE > 60 mL/min (>60); HEMOLYSIS 0; POTASSIUM 3.6 mEQ/L (3.4-4.9); SODIUM 142 mEQ/L (135-145); TOTAL PROTEIN 6.9 g/dL (6.6-8.7); URIC ACID 6.9 mg/dL (3.0-7.5)
[2016-10-26 12:00] VITALS: BP 127/70
[2016-10-26 12:04] LABS: ERYTHROCYTE SEDIMENTATION RATE 41 MM/HR (0-20)
[2016-10-26 12:14] LABS: APPEARANCE,URINE CLEAR; KETONES,URINE NEGATIVE (NEGATIVE); LEUKOCYTE ESTERASE ,URINE NEGATIVE (NEGATIVE); NITRITE,URINE NEGATIVE (NEGATIVE); PH,URINE 6.5 (4.5-8.0); PROTEIN,URINE NEGATIVE (NEGATIVE); UROBILINOGEN,URINE NORMAL MG/DL (0.0-1.0)
[2016-10-26 13:57] VITALS: BP 125/68
--- NOTE | 2016-10-26 14:26 | Diagnostic Imaging Report ---
APPROVED REPORT CPT Code: 53313 Present Symptoms Shortness of breath BILATERAL: Imaging reveals a patent deep venous system bilaterally. There is no evidence of thrombus within the femoral, popliteal or tibial segments. The greater saphenous veins are also within normal limits. Doppler indicates normal spontaneous flow within these segments.
[2016-10-26] MEDS ORDERED: TRIAMTERENE-HC1 EAC5 ORAL (14:36)
[2016-10-26 14:51] VITALS: BP 123/60
== END 2016-10-26 14:58 | disposition home or self-care (01) ==
LOC: EDBD 10:24 → EMR 10:54
DX: R60.0 Localized edema (principal); M32.9 Systemic lupus erythematosus, unspecified; Z86.73 Personal history of transient ischemic attack (TIA), and cerebral infarction without residual deficits
CPT/HCPCS: 36415; 71010; 80053; 80300; 81003; 81025; 82550; 82962; 83880; 84484; 84550; 85025; 85610; 85651; 85730; 93005; 93970; 94640; 96374; 99284; J1940